=== PATIENT | female | born 2000 | race Caucasian/White ===

== ENCOUNTER 2019-10-26 02:43 | Emergency (ER) | payer OTHER, SELFPAY ==
--- NOTE | ~2019-10-26 | XR_ITS ---
XR abdomen/kub 1V DATE: 10/26/2019 03:17 INDICATION: Constipation TECHNIQUE: AP view COMPARISON: None FINDINGS: No bowel obstruction is evident. There is no unusual amount of fecal material within the co estiven. The psoas shadows are intact. No visceromegaly or significant abnormal calcification is evident. The lung bases appear clear. Included skeletal structures are unremarkable. IMPRESSION: No significant abnormality Reviewed, dictated and finalized at [facility]. Reviewed, dictated and finalized at location A. IMPRESSION: No significant abnormality
[2019-10-26 02:46] VITALS: BP 112/58; PULSE 90; RESP 18; TEMP 36.4; O2SAT 98
--- NOTE | 2019-10-26 02:56 | ED.ABDPAIN ---
HPI - Abdominal Pain General Chief Complaint: Abdominal Pain Stated Complaint: abd pain Time Seen by Provider: 10/26/19 02:55 History of Present Illness HPI narrative: Lower abdominal pain for quite some time. The pain is worse with urination or having a bowel movement. radiates to her back. Recently started on dicyclomine, which has greatly improved the pain. She is concerned that she may be becoming constipated. She is still having regular bowel movements, but she feels like it is harder for her to go. The stool is mushy . She has PCP follow-up for this pain and a well woman exam this morning. Related Data Home Medications Medication Instructions Recorded Confirmed buspirone 5 mg PO BID 10/26/19 dicyclomine 10 mg PO BID 10/26/19 sertraline mg 10/26/19 Allergies Allergy/AdvReac Type Severity Reaction Status Date / Time No Known Allergies Allergy Verified 10/26/19 02:50 Review of Systems Review of Systems: All systems reviewed & are unremarkable except as noted in HPI and below Constitutional: Constitutional: Denies chills, Denies fever(s) and Denies weakness Cardiovascular: Cardiovascular: Denies chest pain Respiratory: Respiratory: Denies dyspnea Gastrointestinal: Gastrointestinal: Reports abdominal pain, Reports constipation, Denies diarrhea, Reports nausea and Denies vomiting Genitourinary: Genitourinary: Denies hematuria and Denies dysuria Musculoskeletal: Musculoskeletal: Reports back pain Psychiatric: Psychiatric: Reports anxiety and Reports depression [facility] Past Medical History Medical History (Updated 10/26/19 @ 04:33 by Phil Mora MD) Anorexia Family History Family History (Updated 09/26/18 @ 08:43 by DOCTOR UNKNOWN) Sibling Family history of malignant neoplasm of cervix Other Diabetes mellitus Family history of arthritis Family history of cardiovascular disease Social History Social History Smoking status: Never smoker Second hand tobacco smoke exposure: No Alcohol intake: never Exam Const: General: healthy appearing, no acute distress and alert Nutritional Appearance: well nourished Orientation/consciousness: patient oriented x3 HENMT: Head: normal to inspection Resp: Effort & Inspection: normal respiratory effort Auscultation: clear to auscultation bilaterally Cardio: Rate: regular rate Rhythm: regular rhythm GI: Inspection: non-distended GI Palp: Yes Soft to palpation, Yes Tenderness to palpation present (GI) (bilateral lower abdomen), No Guarding due to palpation present (GI) and No Rebound tenderness present Auscultation: normal bowel sounds Skin: General skin exam: normal color Neuro: General: patient oriented x3, moves all extremities, no focal motor deficits and CN's II-XI intact bilaterally Speech: normal speech Extrem: General: normal to inspection Psych: Affect: Anxious affect present Course Vital Signs Vital signs: Vital Signs Temperature 36.4 C L 10/26/19 02:46 Pulse Rate 90 10/26/19 02:46 Respiratory Rate 18 10/26/19 02:46 Blood Pressure 112/58 L 10/26/19 02:46 Pulse Oximetry 98 10/26/19 02:46 Temperature 36.4 C L 10/26/19 02:46 Pulse Rate 90 10/26/19 02:46 Respiratory Rate 18 10/26/19 02:46 Blood Pressure 112/58 L 10/26/19 02:46 Pulse Oximetry 98 10/26/19 02:46 MDM - Abdominal Pain MDM Narrative Medical decision making narrative: She has chronic abdominal issues. She believes that she is constipated. She is still having bowel movements and x-ray does not show significant stool. UA is not normal, but looks more contaminated than like a UTI. Exam is benign. I believe that she is safe for discharge to follow-up later today as planned. Medical Records Attestation: I reviewed the patient's medical records. Lab Data Attestation: I reviewed the patient's lab results. Labs: Lab Results 10/26/19 Range/Units 03:19 Urine Color Yellow (Yellow) Urine Appearance Cloudy H
[2019-10-26 03:35] LABS: Add Urine Microscopic? YES; Amorphous Sediment Urine Few; Appearance Urine Cloudy (Clear); Bacteria Urine Trace /hpf; Bilirubin Urine Negative (Negative); Blood Urine Negative (Negative); Color Urine Yellow (Yellow); Glucose Urine UA Negative (Negative); Ketones Urine Negative (Negative); Leukocyte Esterase Ur 2+ LEU/UL (Negative); Mucus Urine Rare /lpf; Nitrate Urine Negative (Negative); Protein Urine Negative (Negative); Specific Grav Ur 1.016 (1.001-1.035); Squamous Epithelial Cell Urine Many /hpf (Few); Urobilinogen Urine Negative mg/dL (<2.0)
== END 2019-10-26 03:54 | disposition home or self-care (01) ==
PROVIDERS: Emergency Provider Emergency Medicine; PCP Nurse Practitioner
DX: R10.30 Lower abdominal pain, unspecified (principal)
CPT/HCPCS: 74018; 81001; 81025; 99283

== ENCOUNTER 2019-10-27 14:18 | Outpatient (CLI) | payer OTHER, SELFPAY ==
--- NOTE | ~2019-10-27 | US_ITS ---
EXAMINATION: US right upper quadrant DATE: 10/27/2019 16:27 INDICATION: Right upper quadrant abdominal pain. TECHNIQUE: Multiple grayscale and Doppler ultrasound images of the abdomen were obtained. COMPARISON: CT abdomen and pelvis 06/22/2015 FINDINGS: The visualized portions of the head, body, and tail of the pancreas are normal. The liver i s normal without focal lesion. There is normal flow in main portal vein. The gallbladder is normal in size and contains sludge. No gallstones or gallbladder wall thickening. There was no sonographic Mur phy sign. The common duct is normal and measures 3 mm. IMPRESSION: 1. Gallbladder sludge. No evidence of acute cholecystitis. Reviewed, dictated and finalized at location A.
== END 2019-10-27 14:19 | disposition home or self-care (01) ==
PROVIDERS: PCP Nurse Practitioner; Visit Provider Nurse Practitioner
DX: R10.11 Right upper quadrant pain (principal); K83.9 Disease of biliary tract, unspecified
CPT/HCPCS: 76705

== ENCOUNTER 2019-10-30 14:03 | Emergency (ER) | payer OTHER, SELFPAY ==
--- NOTE | ~2019-10-30 | CT_ITS ---
EXAMINATION: CT abdomen pelvis w con DATE: 10/30/2019 16:01 INDICATION: Left flank pain. TECHNIQUE: Computed tomography (CT) of the abdomen and pelvis was performed with 100 mL Omnipaque-350 intravenous contrast. Automated exposure control and iterative reconstruction technique were employe d. The dose-length product was 195.01 mGy-cm. COMPARISON: 06/22/2015 FINDINGS: Minimal atelectasis/scarring at the anterior basilar left lower lobe. Heart size is normal. No perica rdial or pleural effusion. Liver, gallbladder, spleen, pancreas, bilateral adrenal glands and kidneys are normal. Normal appendix. No abnormal bowel wall thickening or obstruction. Bladder, anteverted u terus and bilateral adnexa are unremarkable. No free intraperitoneal gas or fluid. No pathologically enlarged abdominal or pelvic lymphadenopathy. Bones are unremarkable. IMPRESSION: 1. No acute intra-abdominal/pelvic process. Reviewed, dictated and finalized at location A.
[2019-10-30 14:07] VITALS: BP 111/67; PULSE 88; RESP 18; TEMP 36.6; O2SAT 99
--- NOTE | 2019-10-30 15:19 | ED.ABDPAIN ---
HPI - Abdominal Pain General Chief Complaint: Abdominal Pain Stated Complaint: abdominal pain Time Seen by Provider: 10/30/19 14:58 Source: patient Mode of arrival: ambulatory Limitations: no limitations History of Present Illness HPI narrative: 19-year-old female History of anorexia Complains of approximately a 3-month history of loose stools, not really diarrhea For the last week she has been having sharp left flank pain No nausea or vomiting, no fever, no dysuria or hematuria Her periods have often been irregular but have been regular lately and her last one was 2 weeks ago She does not have any other gynecologic symptoms She is seeing her PCP, labs were done but she is not yet aware of the results Although she is telling me that most of her symptoms are on the left flank or lower belly she had a right upper quadrant ultrasound done which showed an unremarkable gallbladder Pertinent past history: other (Anorexia) Onset (ago): day(s) Pain Consistency: intermittent Location: LLQ and L flank Severity: moderate Related Data Home Medications Medication Instructions Recorded Confirmed buspirone 5 mg PO BID 10/26/19 dicyclomine 10 mg PO BID 10/26/19 sertraline mg 10/26/19 Allergies Allergy/AdvReac Type Severity Reaction Status Date / Time No Known Allergies Allergy Verified 10/26/19 02:50 PMFSH Past Medical History Medical History (Updated 10/30/19 @ 18:12 by Mason Brice MD) Anorexia Family History Family History (Updated 09/26/18 @ 08:43 by DOCTOR UNKNOWN) Sibling Family history of malignant neoplasm of cervix Other Diabetes mellitus Family history of arthritis Family history of cardiovascular disease Social History Social History Smoking status: Never smoker Second hand tobacco smoke exposure: No Alcohol intake: never Gender identity (if verbalized by the patient): Female Sexual Orientation (if Verbalized by the Patient): Straight or Heterosexual Course Vital Signs Vital signs: Vital Signs Temperature 36.6 C 10/30/19 14:07 Pulse Rate 88 10/30/19 14:07 Respiratory Rate 18 10/30/19 14:07 Blood Pressure 111/67 10/30/19 14:07 Pulse Oximetry 99 10/30/19 14:07 Temperature 36.6 C 10/30/19 14:07 Pulse Rate 75 10/30/19 17:10 Respiratory Rate 18 10/30/19 17:10 Blood Pressure 110/72 10/30/19 17:10 Pulse Oximetry 100 10/30/19 17:10 MDM - Abdominal Pain Lab Data Result diagrams: 10/30/19 15:21 10/30/19 15:22 Labs: Lab Results 10/30/19 10/30/19 10/30/19 Range/Units 15:21 15:21 15:22 WBC 6.1 (4.5-10.0) K/mm3 RBC 4.79 (4.2-5.4) M/mm3 Hgb 14.6 (12.0-15.0) g/dL Hct 44.6 (37.0-47.0) % MCV 93.1 (80-100) fl MCH 30.5 (26-34) pg MCHC 32.7 (32-36) g/dl RDW 13.2 (11.5-14.5) % Plt Count 262 (150-375) k/mm3 MPV 9.6 (7.4-10.4) fl Immature Gran % (Auto) 0.2 (0-0.5) % Neut % (Auto) 68.3 (45.5-73.1) % Lymph % (Auto) 22.1 (18.3-44.2) % [place] % (Auto) 7.0 (2.6-8.5) % Eos % (Auto) 1.6 (0-4.4) % Baso % (Auto) 0.8 (0.2-1.2) % Lymph # (Auto) 1.35 (0.9-3.2) K/mm3 [place] # (Auto) 0.4 (0.1-0.6) K/mm3 Eos # (Auto) 0.1 (0-0.3) K/mm3 Baso # (Auto) 0.1 (0.0-0.1) K/mm3 Abs Immat Gran (auto) 0.01 (0.00-0.031) K/mm3 Absolute Neuts (auto) 4.2 (1.3-6.7) K/mm3 Absolute Nucleated RBC 0.0 (0.0-0.012) K/mm3 Nucleated RBC % 0.0 (0.0-0.2) % Sodium 137 (137-145) mmol/L Potassium 4.1 (3.4-5.0) mmol/L Chloride 100 (98-107) mmol/L Carbon Dioxide 31 H (22-30) mmol/L Anion Gap 6 L (8-16) mmol/L BUN 17 (7-17) mg/dL Creatinine 0.60 L (0.7-1.0) mg/dL Estim Creat Clear Calc 100 ml/min Estimated GFR > 60 (59 - ) Glucose 88 (65-105) mg/dL Calcium 9.5 (8.4-10.2) mg/dL Urine Color Yellow (Yellow) Urine Appearance Cloudy H (Clear) Urine pH 6.0 (5.0-9.0)
[2019-10-30] MEDS: HYOSCYAMINE SULFATE 0.125 MG TABLET SUBLINGUAL (15:25)
[2019-10-30 15:31] LABS: Basophils Absolute Auto 0.1 K/mm3 (0.0-0.1); Basophils Percent Auto 0.8 % (0.2-1.2); Eosinophils Absolute Auto 0.1 K/mm3 (0-0.3); Eosinophils Percent Auto 1.6 % (0-4.4); Hematocrit 44.6 % (37.0-47.0); Hemoglobin 14.6 g/dL (12.0-15.0); Immature Granulocyte Absolute 0.01 K/mm3 (0.00-0.031); Immature Granulocyte Percent A 0.2 % (0-0.5); Lymphocytes Absolute Auto 1.35 K/mm3 (0.9-3.2); Lymphocytes Percent Auto 22.1 % (18.3-44.2); Mean Corpuscular HGB Conc 32.7 g/dl (32-36); Mean Corpuscular Hemoglobin 30.5 pg (26-34); Mean Corpuscular Volume 93.1 fl (80-100); Mean Platelet Volume 9.6 fl (7.4-10.4); Monocytes Absolute Auto 0.4 K/mm3 (0.1-0.6); Neutrophils Absolute Auto 4.2 K/mm3 (1.3-6.7); Neutrophils Percent Auto 68.3 % (45.5-73.1); Platelet Count Result 262 k/mm3 (150-375); Red Blood Count 4.79 M/mm3 (4.2-5.4); Red Cell Distribution Width 13.2 % (11.5-14.5); White Blood Count 6.1 K/mm3 (4.5-10.0)
[2019-10-30 15:41] LABS: Add Urine Microscopic? YES; Appearance Urine Cloudy (Clear); Bacteria Urine Trace /hpf; Bilirubin Urine Negative (Negative); Blood Urine Negative (Negative); Color Urine Yellow (Yellow); Glucose Urine UA Negative (Negative); Ketones Urine Negative (Negative); Leukocyte Esterase Ur 2+ LEU/UL (Negative); Mucus Urine Heavy /lpf; Nitrate Urine Negative (Negative); Protein Urine 1+ mg/dL (Negative); Specific Grav Ur 1.024 (1.001-1.035); Squamous Epithelial Cell Urine Many /hpf (Few); Urobilinogen Urine Negative mg/dL (<2.0)
[2019-10-30 15:42] LABS: Anion Gap 6 mmol/L (8-16); Blood Urea Nitrogen 17 mg/dL (7-17); Calcium 9.5 mg/dL (8.4-10.2); Carbon Dioxide 31 mmol/L (22-30); Chloride 100 mmol/L (98-107); Estimated CRCL calculation 100 ml/min; Estimated Glomerular Filt Rate > 60; Glucose 88 mg/dL (65-105); Potassium 4.1 mmol/L (3.4-5.0); Sodium 137 mmol/L (137-145)
[2019-10-30 17:10] VITALS: BP 110/72; PULSE 75; RESP 18; O2SAT 100
== END 2019-10-30 18:28 | disposition home or self-care (01) ==
PROVIDERS: Emergency Provider Emergency Medicine; PCP Nurse Practitioner
DX: K58.9 Irritable bowel syndrome, unspecified (principal)
CPT/HCPCS: 36415; 74177; 80048; 81001; 81025; 85025; 87086; 87088; 99284; A9270; Q9967

== ENCOUNTER 2020-01-22 04:15 | Emergency (ER) | payer OTHER, SELFPAY ==
--- NOTE | ~2020-01-22 | XR_ITS ---
EXAMINATION: XR chest 1V portable DATE: 01/22/2020 05:12 INDICATION: Cough TECHNIQUE: frontal view of the chest was obtained. COMPARISON: Chest radiograph dated 09/28/2018 FINDINGS: The lungs remain clear with no focal airspace opacities, pulmonary edema, pleural effusion or pneumot horax. The cardiomediastinal silhouette is normal. Visualized bones and soft tissues are unremarkable . IMPRESSION: 1. Normal chest radiograph. Reviewed, dictated and finalized at location A. ER MAID IMPRESSION: 1. Normal chest radiograph.
[2020-01-22 04:22] VITALS: BP 113/66; PULSE 94; RESP 16; TEMP 35.9; O2SAT 98
--- NOTE | 2020-01-22 04:55 | ED.URI ---
HPI - URI/Sore Throat General Chief Complaint: Upper Respiratory Infection Stated Complaint: coughing, sore throat Time Seen by Provider: 01/22/20 04:42 History of Present Illness HPI Narrative: Cough and chest congestion for the past week. Associated with a scratchy throat. No fever, chills, SOB. She is tested for COVID-19 twice weekly at work and all tests have been negative. Robitussin has not relieved her cough. Related Data Home Medications Medication Instructions Recorded Confirmed buspirone 5 mg PO BID 10/26/19 dicyclomine 10 mg PO BID 10/26/19 sertraline mg 10/26/19 Allergies Allergy/AdvReac Type Severity Reaction Status Date / Time No Known Allergies Allergy Verified 10/26/19 02:50 Review of Systems Review of Systems: All systems reviewed & are unremarkable except as noted in HPI and below Constitutional: Constitutional: Denies chills and Denies fever(s) ENT: Reports sore throat Cardiovascular: Cardiovascular: Denies chest pain Respiratory: Respiratory: Reports chest congestion, Reports cough, Denies dyspnea and Denies wheezing Gastrointestinal: Gastrointestinal: Denies abdominal pain and Denies nausea Genitourinary: Genitourinary: Denies dysuria Musculoskeletal: Musculoskeletal: Denies back pain Neurologic: Denies numbness and Denies weakness [facility] Past Medical History Medical History Anorexia Family History Family History Sibling Family history of malignant neoplasm of cervix Other Diabetes mellitus Family history of arthritis Family history of cardiovascular disease Social History Social History Smoking status: Never smoker Second hand tobacco smoke exposure: No Alcohol intake: never Gender identity (if verbalized by the patient): Female Exam Const: General: healthy appearing, no acute distress and alert Orientation/consciousness: patient oriented x3 HENMT: Head: normal to inspection Neck: Neck: normal visual inspection and no lymphadenopathy Chest: Chest palpation & inspection: no tenderness Resp: Effort & Inspection: normal respiratory effort Auscultation: clear to auscultation bilaterally, no rales, no rhonchi and no wheezes Cardio: Jugular venous distension: no JVD Rate: regular rate Rhythm: regular rhythm Heart sounds: no murmurs GI: Inspection: non-distended GI Palp: Yes Soft to palpation and No Tenderness to palpation present (GI) Skin: General skin exam: normal color Neuro: General: patient oriented x3 and moves all extremities Speech: normal speech Extrem: General: no edema Psych: Appearance: well kempt Affect: normal affect Course Vital Signs Vital signs: Vital Signs Temperature 35.9 C L 01/22/20 04:22 Pulse Rate 94 01/22/20 04:22 Respiratory Rate 16 01/22/20 04:22 Blood Pressure 113/66 01/22/20 04:22 Pulse Oximetry 98 01/22/20 04:22 Temperature 35.9 C L 01/22/20 04:22 Pulse Rate 94 01/22/20 04:22 Respiratory Rate 16 01/22/20 04:22 Blood Pressure 113/66 01/22/20 04:22 Pulse Oximetry 98 01/22/20 04:22 MDM - URI/Sore Throat MDM Narrative Medical decision making narrative: Chest x-ray negative. Vitals normal. Imaging Data Attestation: I personally reviewed and interpreted this imaging study as follows: My impression: Negative chest x-ray Discharge Plan Discharge Clinical Impression: Upper respiratory infection Patient Disposition: Home, Self-Care Condition: Stable Instructions: Upper Respiratory Infection (ED) Prescriptions: New benzonatate [Tessalon Perles] 100 mg capsule 100 mg PO TID PRN (Reason: cough) Qty: 20 RF: 0 No Action buspirone 5 mg Tablet 5 mg PO BID RF: 0 sertraline 100 mg tablet RF: 0 dicyclomine 10 mg Capsule 10 mg PO BID RF: 0 hyoscyamine sulfate [
--- NOTE | 2020-01-22 05:03 | PC.NURSE ---
Radiology at bedside
[2020-01-22] MEDS: BENZONATATE 100 MG CAPSULE 200 MG PO (05:12)
[2020-01-22 05:59] VITALS: BP 102/73; PULSE 60; RESP 18; O2SAT 99
== END 2020-01-22 06:06 | disposition home or self-care (01) ==
PROVIDERS: Emergency Provider Emergency Medicine; PCP Nurse Practitioner
DX: J06.9 Acute upper respiratory infection, unspecified (principal)
CPT/HCPCS: 71045; 99283; A9270

== ENCOUNTER 2020-03-02 06:17 | Emergency (ER) | payer OTHER, SELFPAY ==
--- NOTE | ~2020-03-02 | XR_ITS ---
EXAMINATION: XR chest 2V EXAM DATE: 03/02/2020 06:55 INDICATION: Left-sided chest pressure. TECHNIQUE: Frontal and lateral projections of the chest obtained and reviewed. Comparison is made to prior examination from 01/22/2020. FINDINGS: The lungs are clear. There are no pleural effusions. The cardiomediastinal silhouette is within normal limits. There is no pneumothorax suspected. The bones and soft tissues are unremarkab le. IMPRESSION: Normal chest x-ray exam. Reviewed, dictated and finalized at location A. R ACCOMPANIST IMPRESSION: Normal chest x-ray exam.
[2020-03-02 06:22] VITALS: BP 127/69; PULSE 50; RESP 16; TEMP 36.7; O2SAT 100
--- NOTE | 2020-03-02 06:28 | PC.NURSE ---
Pt moderate risk for treatment for SI in 2019. Denies SI at this time.
--- NOTE | 2020-03-02 06:29 | ECG_ITS ---
Measurements Intervals [place] Rate: 50 P: 80 MS: 229 QRS: 78 QRSD: 101 T: 52 QT: 407 QTc: 373 Interpretive Statements SINUS BRADYCARDIA WITH MARKED SINUS ARRHYTHMIA WITH FIRST DEGREE AV BLOCK POSSIBLE LEFT ATRIAL ENLARGEMENT INCOMPLETE RIGHT BUNDLE BRANCH BLOCK ABNORMAL ECG Electronically Signed On 03-02-2020 7:18:09 MATHEMATICIAN RESEARCH by Addy Shetty D.O.
--- NOTE | 2020-03-02 06:42 | PC.NURSE ---
Patient refusing IV access stating, if you guys leave this IV in my arm it will trigger my anxiety and I will have panic attack.
[2020-03-02 06:44] VITALS: PULSE 64
[2020-03-02 06:45] LABS: Basophils Absolute Auto 0.1 K/mm3 (0.0-0.1); Eosinophils Absolute Auto 0.2 K/mm3 (0-0.3); Eosinophils Percent Auto 2.9 % (0-4.4); Hematocrit 44.8 % (37.0-47.0); Hemoglobin 14.6 g/dL (12.0-15.0); Immature Granulocyte Absolute 0.03 K/mm3 (0.00-0.031); Immature Granulocyte Percent A 0.4 % (0-0.5); Lymphocytes Absolute Auto 2.43 K/mm3 (0.9-3.2); Lymphocytes Percent Auto 35.7 % (18.3-44.2); Mean Corpuscular HGB Conc 32.6 g/dl (32-36); Mean Corpuscular Volume 95.1 fl (80-100); Mean Platelet Volume 8.9 fl (7.4-10.4); Monocytes Absolute Auto 0.5 K/mm3 (0.1-0.6); Monocytes Percent Auto 7.5 % (2.6-8.5); Neutrophils Absolute Auto 3.6 K/mm3 (1.3-6.7); Neutrophils Percent Auto 52.5 % (45.5-73.1); Platelet Count Result 276 k/mm3 (150-375); Red Blood Count 4.71 M/mm3 (4.2-5.4); Red Cell Distribution Width 13.9 % (11.5-14.5); White Blood Count 6.8 K/mm3 (4.5-10.0)
[2020-03-02 06:53] LABS: Partial Thromboplastin Time 28.9 SECONDS (22.3-36.8); Prothrombin Time 13.5 Seconds (11.1-14.7)
[2020-03-02 06:56] LABS: Anion Gap 6 mmol/L (8-16); Blood Urea Nitrogen 15 mg/dL (7-17); Calcium 9.4 mg/dL (8.4-10.2); Carbon Dioxide 30 mmol/L (22-30); Chloride 102 mmol/L (98-107); Estimated CRCL calculation 105 ml/min; Estimated Glomerular Filt Rate > 60; Glucose 90 mg/dL (65-105); Potassium 3.8 mmol/L (3.4-5.0); Sodium 138 mmol/L (137-145)
[2020-03-02 07:09] LABS: Troponin I < 0.012 ng/mL (0.000-0.034)
[2020-03-02 07:30] VITALS: BP 109/75; PULSE 69; RESP 18; O2SAT 100
--- NOTE | 2020-03-02 07:36 | ED.CHESTPAIN ---
HPI - Chest Pain General Chief Complaint: Chest Pain Stated Complaint: cp/sob Time Seen by Provider: 03/02/20 07:04 History of Present Illness HPI narrative: Patient is a 19-year-old female who presents ER with left-sided chest pain. Began a couple hours prior to arrival. Association with discomfort in the left shoulder and arm. It is aching in nature. She tried to wait it out to see if it would go away but it persisted. Prior to arrival she did developed an anxiety attack. Now that she is here she only has a small amount of discomfort in her left upper chest near the axilla and in her left shoulder. Is reproducible with movement or pressure. She is tried no pain medications. She has no runny nose/sore throat/productive cough. No history of cardiac disease. No additional infectious symptoms. No lower extremity swelling. Related Data Home Medications Medication Instructions Recorded Confirmed buspirone 5 mg PO BID 10/26/19 sertraline 50 mg PO DAILY 10/26/19 oxcarbazepine 300 mg PO BID 03/02/20 03/02/20 Allergies Allergy/AdvReac Type Severity Reaction Status Date / Time No Known Allergies Allergy Verified 03/02/20 07:51 Review of Systems Review of Systems: All systems reviewed & are unremarkable except as noted in HPI and below Constitutional: Constitutional: Denies chills, Denies fever(s) and Denies weakness ENT: Denies nasal congestion and Denies sore throat Cardiovascular: Cardiovascular: Reports chest pain, Denies rapid heart rate and Reports radiating jaw, neck or arm pain Respiratory: Respiratory: Denies cough, Denies dyspnea and Denies wheezing Gastrointestinal: Gastrointestinal: Denies abdominal pain, Denies diarrhea, Denies nausea and Denies vomiting Neurologic: Denies focal weakness and Denies numbness Psychiatric: Psychiatric: Reports anxiety and Denies depression [facility] Past Medical History Medical History (Updated 03/02/20 @ 08:42 by John Garcia MD) Anorexia Surgical History Surgical History (Updated 03/02/20 @ 07:39 by John Garcia MD) No history of previous surgery Family History Family History Sibling Family history of malignant neoplasm of cervix Other Diabetes mellitus Family history of arthritis Family history of cardiovascular disease Social History Social History Smoking status: Never smoker Second hand tobacco smoke exposure: No Alcohol intake: never Gender identity (if verbalized by the patient): Female Exam Narrative: Exam Narrative: GENERAL: Well-appearing, well-nourished, and in no acute distress. HEAD: Normocephalic, atraumatic. EYES: PERRL and EOMI. CHEST: Clear to auscultation. No respiratory distress. Reproducible tenderness to the left upper chest near the axilla with light palpation. HEART: Regular rate and rhythm. Normal peripheral pulses. ABDOMEN: Soft, nontender, nondistended. EXTREMITIES: Normal range of motion. No edema. NEURO: Alert and oriented x3. PSYCH: Normal mood and affect. Course Course Emergency Course: Aspirin is taken by patient's discomfort. Unremarkable work-up. Discharge home. Vital Signs Vital signs: Vital Signs Temperature 98.1 F 03/02/20 06:22 Pulse Rate 50 L 03/02/20 06:22 Respiratory Rate 16 03/02/20 06:22 Blood Pressure 127/69 03/02/20 06:22 Pulse Oximetry 100 03/02/20 06:22 Temperature 98.1 F 03/02/20 06:22 Pulse Rate 69 03/02/20 07:30 Respiratory Rate 18 03/02/20 07:30 Blood Pressure 109/75 03/02/20 07:30 Pulse Oximetry 100 03/02/20 07:30 MDM - Chest Pain Lab Data Result diagrams: 03/02/20 06:37 03/02/20 06:37 Labs: Lab Results 03/02/20 03/02/20 03/02/20 Range/Units 06:37 06:37 06:37 WBC 6.8 (4.5-10.0) K/mm3 RBC 4.71 (4.2-5.4) M/mm3 Hgb 14.6 (12.0-15.0) g/dL Hct 44.8 (37.0-
[2020-03-02] MEDS: ASPIRIN 81 MG CHEWABLE TABLET 324 MG PO (07:50)
== END 2020-03-02 08:54 | disposition home or self-care (01) ==
PROVIDERS: Emergency Medicine; Emergency Provider Emergency Medicine; Family Provider Pediatrics; PCP Nurse Practitioner
DX: R07.9 Chest pain, unspecified (principal); R00.1 Bradycardia, unspecified
CPT/HCPCS: 36415; 71046; 80048; 84484; 85025; 85610; 85730; 93005; 99284; A9270

== ENCOUNTER 2020-05-26 10:20 | Emergency (ER) | payer OTHER, SELFPAY ==
[2020-05-26] VITALS (10 sets, daily range): BP systolic 106–129; BP diastolic 72–87; PULSE 58–88; RESP 11–22; TEMP 37.1; O2SAT 98–100
--- NOTE | ~2020-05-26 | XR_ITS ---
EXAMINATION: XR chest 2V DATE: 05/26/2020 10:59 INDICATION: Chest pain. TECHNIQUE: Frontal and lateral views of the chest were obtained. COMPARISON: Chest 2 views 03/02/2020, CT abdomen and pelvis 10/30/2019 FINDINGS: The chest demonstrates clear lungs without pneumonia, pleural effusion, or pneumothorax. Th e heart size is normal. IMPRESSION: 1. No acute cardiopulmonary disease. Reviewed, dictated and finalized at location A.
--- NOTE | 2020-05-26 10:25 | ED.CHESTPAIN ---
HPI - Chest Pain General Chief Complaint: Chest Pain <Belkys Segundo PA-C - Last Filed: 05/26/20 14:08> Stated Complaint: CP URI symptoms <ALYSSA Freed Last Filed: 05/26/20 14:08> Time Seen by Provider: 05/26/20 10:22 <ALYSSA Freed Last Filed: 05/26/20 14:08> Source: patient <ALYSSA Freed Last Filed: 05/26/20 14:08> Mode of arrival: EMS <ALYSSA Freed Last Filed: 05/26/20 14:08> Limitations: no limitations <ALYSSA Freed Last Filed: 05/26/20 14:08> History of Present Illness HPI narrative: This is a 19 year old female that presents to the ER for chest pain intermittent over the last 4 months. Reports the pain is a pressure in nature. No known alleviating or exacerbating factors. It is on the left side of her chest. Lasts a few minutes to even all day at times. Today it started when she woke up. She has also had some congestion the last week. Has had sinus issues for years. Reports she is a little short of breath. Denies fever, sore throat, cough, or lower extremity edema. <ALYSSA Freed Last Filed: 05/26/20 14:08> Related Data Home Medications: Home Medications Medication Instructions Recorded Confirmed buspirone 5 mg PO BID 10/26/19 sertraline 50 mg PO DAILY 10/26/19 oxcarbazepine 300 mg PO BID 03/02/20 03/02/20 <ALYSSA Freed Last Filed: 05/26/20 14:08> Allergies/Adverse Reactions: Allergies Allergy/AdvReac Type Severity Reaction Status Date / Time No Known Allergies Allergy Verified 05/26/20 10:46 <ALYSSA Freed Last Filed: 05/26/20 14:08> Review of Systems Review of Systems: Narrative: CONSTITUTIONAL: Denies fever ENT: Reports congestion. Denies sore throat, or otalgia. CARDIOVASCULAR: Reports chest pain. Denies edema. RESPIRATORY: Reports dyspnea. Denies cough <Belkys Segundo PA-C - Last Filed: 05/26/20 14:08> All systems reviewed & are unremarkable except as noted in HPI and below <Belkys Segundo PA-C - Last Filed: 05/26/20 14:08> PMFSH Past Medical History Medical History: Medical History (Updated 05/26/20 @ 13:27 by Belkys Segundo PA-C) Anorexia History of anxiety <Belkys Segundo PA-C - Last Filed: 05/26/20 14:08> Surgical History Surgical History: Surgical History (Updated 03/02/20 @ 07:39 by John Garcia MD) No history of previous surgery <Belkys Segundo PA-C - Last Filed: 05/26/20 14:08> Family History Family History: Family History Sibling Family history of malignant neoplasm of cervix Other Diabetes mellitus Family history of arthritis Family history of cardiovascular disease <Belkys Segundo PA-C - Last Filed: 05/26/20 14:08> Social History Social History: Social History Smoking status: Never smoker Second hand tobacco smoke exposure: No Alcohol intake: never Gender identity (if verbalized by the patient): Female <Belkys Segundo PA-C - Last Filed: 05/26/20 14:08> Exam Narrative: Exam Narrative: GENERAL: Well-appearing, well-nourished, and in no acute distress. HEAD: Normocephalic, atraumatic. EYES: EOMI. ENT: Nares clear, no rhinorrhea or epistaxis. Mucous membranes moist. Oropharynx without tonsillar hypertrophy exudate or other lesions. Bilateral TMs pearly abad non-bulging NECK: Supple. No adenopathy or masses. CHEST: Clear to auscultation. No respiratory distress. No wheezes rales or rhonchi. Tender to palpation of the left anterior chest HEART: Regular rate and rhythm. No murmur heard. Normal peripheral pulses. EXTREMITIES: Normal range of motion. No edema. SKIN: Warm, dry, no rash. NEURO: No focal deficits. Alert and oriented x3. PSYCH: Normal mood and affect <Belkys Segundo PA-C - Last Filed: 05/26/20 14:08> Course Vital Signs Vital signs: Vit
--- NOTE | 2020-05-26 10:39 | ECG_ITS ---
Measurements Intervals [place] Rate: 74 P: 63 SD: 224 QRS: 62 QRSD: 87 T: 49 QT: 383 QTc: 426 Interpretive Statements SINUS RHYTHM WITH FIRST DEGREE AV BLOCK INCOMPLETE RIGHT BUNDLE BRANCH BLOCK ABNORMAL ECG Electronically Signed On 05-26-2020 10:41:23 CDT by Addy Shetty D.O.
[2020-05-26 11:17] LABS: Basophils Absolute Auto 0.1 K/mm3 (0.0-0.1); Basophils Percent Auto 0.8 % (0.2-1.2); Eosinophils Absolute Auto 0.1 K/mm3 (0-0.3); Eosinophils Percent Auto 0.9 % (0-4.4); Hematocrit 44.1 % (37.0-47.0); Hemoglobin 14.8 g/dL (12.0-15.0); Immature Granulocyte Absolute 0.02 K/mm3 (0.00-0.031); Immature Granulocyte Percent A 0.3 % (0-0.5); Lymphocytes Absolute Auto 1.26 K/mm3 (0.9-3.2); Lymphocytes Percent Auto 19.4 % (18.3-44.2); Mean Corpuscular HGB Conc 33.6 g/dl (32-36); Mean Corpuscular Volume 92.5 fl (80-100); Mean Platelet Volume 9.2 fl (7.4-10.4); Monocytes Absolute Auto 0.7 K/mm3 (0.1-0.6); Monocytes Percent Auto 10.8 % (2.6-8.5); Neutrophils Absolute Auto 4.4 K/mm3 (1.3-6.7); Neutrophils Percent Auto 67.8 % (45.5-73.1); Platelet Count Result 243 k/mm3 (150-375); Red Blood Count 4.77 M/mm3 (4.2-5.4); Red Cell Distribution Width 12.8 % (11.5-14.5); White Blood Count 6.5 K/mm3 (4.5-10.0)
[2020-05-26 11:26] LABS: Prothrombin Time 13.6 Seconds (11.1-14.7)
[2020-05-26 11:27] LABS: Partial Thromboplastin Time 27.2 SECONDS (22.3-36.8)
[2020-05-26 11:28] LABS: Anion Gap 9 mmol/L (8-16); Blood Urea Nitrogen 8 mg/dL (7-17); Calcium 9.1 mg/dL (8.4-10.2); Carbon Dioxide 28 mmol/L (22-30); Chloride 100 mmol/L (98-107); Estimated CRCL calculation 103 ml/min; Estimated Glomerular Filt Rate > 60; Glucose 85 mg/dL (65-105); Potassium 3.7 mmol/L (3.4-5.0); Sodium 137 mmol/L (137-145)
[2020-05-26 11:34] LABS: D Dimer 0.24 ug/mL (<0.48)
[2020-05-26 11:40] LABS: Troponin I < 0.012 ng/mL (0.000-0.034)
[2020-05-26] MEDS: ACETAMINOPHEN 500 MG TABLET 1000 MG PO (12:35)
--- NOTE | 2020-05-26 12:45 | PC.NURSE ---
Pt given tylenol po for headache. Pt also given lunch tray.
[2020-05-26 14:07] LABS: Troponin I < 0.012 ng/mL (0.000-0.034)
== END 2020-05-26 14:20 | disposition home or self-care (01) ==
PROVIDERS: Physician Assistant; Emergency Provider General Practice; PCP Internal Medicine
DX: R07.89 Other chest pain (principal); F41.9 Anxiety disorder, unspecified; I44.0 Atrioventricular block, first degree; I45.10 Unspecified right bundle-branch block
CPT/HCPCS: 36415; 71046; 80048; 84484; 85025; 85380; 85610; 85730; 93005; 99284; A9270

== ENCOUNTER 2020-08-05 12:31 | Outpatient (CLI) | payer OTHER, SELFPAY ==
--- NOTE | 2020-08-05 | ECHO_ITS ---
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 Summary 1. Complete two-dimensional, color flow and Doppler transthoracic echocardiogram is performed. 2. Left ventricular chamber dimension is normal. 3. Left ventricular systolic function is normal, estimated at 55-60%. 4. The left ventricular diastolic function is normal. 5. E/e' 6 is not elevated. 6. Global longitudinal strain is abnormal at -12.8%. 7. No pulmonary hypertension, estimated pulmonary arterial systolic pressure is 20 mmHg. Left Ventricle E/e' 6 is not elevated. Global longitudinal strain is abnormal at -12.8%. Left ventricular chamber dimension is normal. Left ventricular systolic function is normal, estimated at 55-60%. The left ventricular diastolic function is normal. Right Ventricle Right ventricular chamber dimension is normal. Right ventricular systolic function is normal. Left Atria Left atrial chamber dimension is normal. Right Atria Right atrial chamber dimension is normal. Aortic Valve The aortic valve is trileaflet. There is no aortic valve stenosis. There is no aortic valve regurgitation. Pulmonic Valve There is no pulmonic regurgitation. Mitral Valve There is no mitral valve stenosis. There is no mitral valve regurgitation. Tricuspid Valve There is no tricuspid valve regurgitation. No pulmonary hypertension, estimated pulmonary arterial systolic pressure is 20 mmHg. Pericardium/Pleural There is no pericardial effusion. Inferior Vena Cava Normal inferior vena cava with >50% collapse upon inspiration consistent with normal right atrial pressure, 5 mmHg. Aorta The aortic root size at the sinus of Valsalva is normal. Left Ventricular Outflow Tract Name Value Normal LVOT 2D LVOT Diameter 2.0 cm LVOT Doppler LVOT Peak Gradient 3 mmHg LVOT Mean Gradient 2 mmHg LVOT VTI 17 cm LVOT VTI/AV VTI Ratio 1.0 LVOT Stroke Volume 52 ml LVOT CO 3.4 l/min LVOT CI 2.3 l/min/m2 Pulmonic Valve Name Value Normal RVOT Doppler RVOT Peak Gradient 2 mmHg
== END 2020-08-05 12:32 | disposition home or self-care (01) ==
PROVIDERS: PCP Internal Medicine; Visit Provider Internal Medicine
DX: I45.9 Conduction disorder, unspecified (principal)
CPT/HCPCS: 93306

== ENCOUNTER 2020-08-23 17:12 | Outpatient (CLI) | payer OTHER, SELFPAY ==
[2020-08-23 18:02] LABS: Prothrombin Time 12.7 Seconds (11.1-14.7)
[2020-08-23 18:05] LABS: Partial Thromboplastin Time 28.6 SECONDS (22.3-36.8)
== END 2020-08-23 17:13 | disposition home or self-care (01) ==
LOC: ANHLAB 17:13
PROVIDERS: PCP Internal Medicine; Visit Provider Internal Medicine
DX: R23.8 Other skin changes (principal)
CPT/HCPCS: 36415; 85610; 85730

== ENCOUNTER 2020-09-14 06:37 | Emergency (ER) | payer OTHER, SELFPAY ==
[2020-09-14] VITALS (8 sets, daily range): BP systolic 107–128; BP diastolic 64–88; PULSE 53–89; RESP 12–16; TEMP 36.6; O2SAT 96–100
--- NOTE | ~2020-09-14 | US_ITS ---
EXAMINATION: US pelvic complete w TV DATE: 09/14/2020 09:30 INDICATION: Left back and abdominal pain. TECHNIQUE: Multiple transabdominal and endovaginal sonographic images of the pelvis were obtained. COMPARISON: None. FINDINGS: The anteverted uterus measures 6.3 x 3.2 x 3.7 cm. The endometrial complex measures 8 mm in thicknes s. The right ovary is not visualized The left ovary measures 3.8 x 3.8 x 3.8 cm. 2.3 cm complex likel y hemorrhagic cyst in the left ovary with typical appearance including a lacelike pattern of thin int ernal septations and small crescentic peripheral hypoechoic region without vascular flow on color Dop pler. There is normal vascular flow in the left ovary. There is no free fluid in the pelvis. IMPRESSION: 1. 2.3 cm complex likely hemorrhagic cyst in the left ovary. Consider 6-12 week follow-up pelvic ultr asound. Reviewed, dictated and finalized at location A. IMPRESSION: 1. 2.3 cm complex likely hemorrhagic cyst in the left ovary. Consider 6-12 week follow-up pelvic ultrasound.
--- NOTE | ~2020-09-14 | XR_ITS ---
EXAMINATION: XR abdomen/kub 1V DATE: 09/14/2020 08:18 INDICATION: Left flank pain TECHNIQUE: A supine view of the abdomen on 2 radiographs was obtained. COMPARISON: CT dated 09/14/2020 and KUB dated 10/26/2019 FINDINGS: Normal bowel gas pattern. A couple unchanged phleboliths in the left hemipelvis. No other calcificati ons to suggest urolithiasis. Visualized mid to lower lungs are clear. Heart size is normal. IMPRESSION: 1. Normal bowel gas pattern with no evident urolithiasis. Reviewed, dictated and finalized at location A.
--- NOTE | ~2020-09-14 | CT_ITS ---
EXAMINATION: CT abdomen pelvis wo con DATE: 09/14/2020 08:13 INDICATION: Left flank pain TECHNIQUE: Computed tomography (CT) of the abdomen and pelvis was performed without intravenous contr ast. Automated exposure control and iterative reconstruction technique were employed. The dose-length product was 172.99 mGy-cm. COMPARISON: 10/30/2019 FINDINGS: Unchanged minimal left basilar atelectasis/scarring. Visualized inferior heart is normal. No pericard ial or pleural effusion. Liver, gallbladder, spleen, pancreas and bilateral adrenal glands are normal . Kidneys and ureters are normal with no urolithiasis, hydroureteronephrosis or perinephric/ureteral stranding. Bladder is normal. A couple unchanged phleboliths in the deep pelvis. The left ovary is in unchanged position from the prior study but appears mildly enlarged measuring 4.1 x 3.2 cm and with asymmetric decreased attenuation likely related to ovarian cysts/follicles. Anteverted uterus and rig ht adnexa are unremarkable. No free intraperitoneal gas or fluid. No pathologically enlarged abdomina l or pelvic lymphadenopathy. Bones are unremarkable. IMPRESSION: 1. No urolithiasis or hydronephrosis. 2. Mildly enlarged left ovary measuring 4.1 x 3.2 cm with decreased attenuation likely related to ova estella cysts/follicles. No change in position since the prior study to suggest torsion however if there is clinical concern would consider pelvic ultrasound for further evaluation. Reviewed, dictated and finalized at location A. IMPRESSION: 1. No urolithiasis or hydronephrosis. 2. Mildly enlarged left ovary measuring 4.1 x 3.2 cm with decreased attenuation likely related to ovarian cysts/follicles. No change in position since the tamara or study to suggest torsion however if there is clinical concern would consider pelvic ultrasound for further evaluation.
[2020-09-14 07:28] LABS: Add Urine Microscopic? YES; Appearance Urine Clear (Clear); Bilirubin Urine Negative (Negative); Blood Urine Negative (Negative); Calcium Oxalate Crystals Urine Present /hpf; Color Urine Amber (Yellow); Glucose Urine UA Negative (Negative); Ketones Urine Negative (Negative); Leukocyte Esterase Ur Trace LEU/UL (Negative); Mucus Urine Heavy /lpf; Nitrate Urine Negative (Negative); Protein Urine Negative (Negative); Specific Grav Ur 1.024 (1.001-1.035); Squamous Epithelial Cell Urine Many /hpf (Few)
[2020-09-14 07:36] LABS: Basophils Percent Auto 0.7 % (0.2-1.2); Eosinophils Absolute Auto 0.1 K/mm3 (0-0.3); Hematocrit 46.5 % (37.0-47.0); Hemoglobin 14.8 g/dL (12.0-15.0); Immature Granulocyte Absolute 0.03 K/mm3 (0.00-0.031); Immature Granulocyte Percent A 0.5 % (0-0.5); Lymphocytes Absolute Auto 1.28 K/mm3 (0.9-3.2); Lymphocytes Percent Auto 22.9 % (18.3-44.2); Mean Corpuscular HGB Conc 31.8 g/dl (32-36); Mean Corpuscular Hemoglobin 30.5 pg (26-34); Mean Corpuscular Volume 95.7 fl (80-100); Mean Platelet Volume 8.2 fl (7.4-10.4); Monocytes Absolute Auto 0.4 K/mm3 (0.1-0.6); Monocytes Percent Auto 7.3 % (2.6-8.5); Neutrophils Absolute Auto 3.7 K/mm3 (1.3-6.7); Neutrophils Percent Auto 66.6 % (45.5-73.1); Platelet Count Result 268 k/mm3 (150-375); Red Blood Count 4.86 M/mm3 (4.2-5.4); Red Cell Distribution Width 12.8 % (11.5-14.5); White Blood Count 5.6 K/mm3 (4.5-10.0)
[2020-09-14 07:49] LABS: Alanine Aminotransferase 12 U/L (4-35); Albumin Level 4.3 g/dL (3.5-5.1); Alkaline Phosphatase 69 U/L (38-126); Anion Gap 8 mmol/L (8-16); Aspartate Amino Transferase 23 U/L (14-36); Bilirubin,Total 0.5 mg/dL (0.2-1.3); Blood Urea Nitrogen 11 mg/dL (7-17); Calcium 9.5 mg/dL (8.4-10.2); Carbon Dioxide 29 mmol/L (22-30); Chloride 101 mmol/L (98-107); Estimated Glomerular Filt Rate > 60; Glucose 73 mg/dL (65-110); Lipase 132 U/L (23-300); Potassium 4.1 mmol/L (3.4-5.0); Sodium 138 mmol/L (137-145)
--- NOTE | 2020-09-14 07:52 | PC.NURSE ---
Assumed care of pt at this time, pt is alert and upright on stretcher. VSS. EDP at bedside discussing POC. Pt declines IV at this time.
--- NOTE | 2020-09-14 07:59 | ED.ABDPAIN ---
HPI - Abdominal Pain General Chief Complaint: Abdominal Pain Stated Complaint: abd pain, back pain Time Seen by Provider: 09/14/20 07:08 Source: patient and RN notes reviewed Mode of arrival: ambulatory Limitations: no limitations History of Present Illness HPI narrative: This is a 19 year old female who presents for evaluation of left flank pain. She states she developed left lower abdominal pain that radiates to her left lower back on Saturday. She reports constant pain. She was evaluated at an urgent care on Saturday, and she was diagnosed with a UTI. She continues to have pain so she wanted a second opinion. She describes her pain as warm feeling . She has increased urinary urgency but she denies dysuria, hematuria or abnormal vaginal discharge. She also denies fever or chills. She reports nausea and vomiting. Related Data Home Medications Medication Instructions Recorded Confirmed buspirone 5 mg PO BID 10/26/19 sertraline 50 mg PO DAILY 10/26/19 oxcarbazepine 300 mg PO BID 03/02/20 03/02/20 Allergies Allergy/AdvReac Type Severity Reaction Status Date / Time No Known Allergies Allergy Verified 09/14/20 08:19 Review of Systems Review of Systems: All systems reviewed & are unremarkable except as noted in HPI and below PMFSH Past Medical History Medical History (Updated 09/14/20 @ 10:38 by Brooke Teresa MD) Anorexia History of anxiety Surgical History Surgical History (Updated 03/02/20 @ 07:39 by John Garcia MD) No history of previous surgery Family History Family History Sibling Family history of malignant neoplasm of cervix Other Diabetes mellitus Family history of arthritis Family history of cardiovascular disease Social History Social History Smoking status: Never smoker Second hand tobacco smoke exposure: No Alcohol intake: never Gender identity (if verbalized by the patient): Female Exam Const: General: alert Nutritional Appearance: thin Orientation/consciousness: patient oriented x3 HENMT: Head: normocephalic and atraumatic Face and sinus: normal facial exam, sinuses nontender and face symmetric Mouth: Yes Normal oral and palatal mucosa present, Yes lip normal, Yes oropharynx normal and Yes moist mucous membranes Throat: posterior oropharynx normal Eyes: Pupils: Equal, round and reactive pupils present EOM: EOMs intact bilaterally Resp: Effort & Inspection: normal respiratory effort and no retractions Auscultation: clear to auscultation bilaterally Cardio: Rate: regular rate Rhythm: regular rhythm Heart sounds: no murmurs GI: GI Palp: Yes Soft to palpation, Yes Tenderness to palpation present (GI), No Guarding due to palpation present (GI) and No Rigid due to palpation Auscultation: normal bowel sounds : General: Yes no CVA tenderness Skin: General skin exam: normal color Rashes: no rashes Neuro: General: patient oriented x3, moves all extremities and CN's II-XI intact bilaterally Extrem: General: normal to inspection Psych: Mental Status: mental status grossly normal Affect: normal affect Course Reevaluation(s) Reevaluation #1: I have reviewed with patient labs and imaging findings. She understands she has an ovarian cyst that she will need to follow up with her family psychologist about. She will finish her current antibiotics. She denies any other questions or concerns. Date: 09/14/20 Time: 10:36 Vital Signs Vital signs: Vital Signs Temperature 97.9 F 09/14/20 06:42 Pulse Rate 89 09/14/20 06:42 Respiratory Rate 16 09/14/20 06:42 Blood Pressure 128/88 09/14/20 06:42 Pulse Oximetry 96 09/14/20 06:42 Temperature 97.9 F 09/14/20 06:42 Pulse Rate 55 L 09/14/20 10:47 Respiratory Rate 16 09/14/20 10:47 Blood Pressure 119/77 09/14/20 10:47 Pulse Oximetry 100 09/14/20 10:47
[2020-09-14] MEDS: ONDANSETRON INJ 4 MG/2 ML VIAL IV PUSH (08:25)
--- NOTE | 2020-09-14 09:11 | PC.NURSE ---
Pt to ultrasound.
== END 2020-09-14 10:50 | disposition home or self-care (01) ==
PROVIDERS: Emergency Medicine; Emergency Provider General Practice; PCP Internal Medicine
DX: N83.202 Unspecified ovarian cyst, left side (principal); F41.9 Anxiety disorder, unspecified
CPT/HCPCS: 36415; 74018; 74176; 76830; 76856; 80053; 81001; 81025; 83690; 85025; 96365; 96375; 99284; J0131; J2405

== ENCOUNTER 2020-09-17 23:10 | Emergency (ER) | payer OTHER, SELFPAY ==
[2020-09-17 23:18] VITALS: BP 96/55; PULSE 103; RESP 18; TEMP 37.1; O2SAT 99
[2020-09-17 23:39] LABS: Basophils Absolute Auto 0.1 K/mm3 (0.0-0.1); Basophils Percent Auto 0.8 % (0.2-1.2); Eosinophils Absolute Auto 0.1 K/mm3 (0-0.3); Eosinophils Percent Auto 2.2 % (0-4.4); Hemoglobin 14.4 g/dL (12.0-15.0); Immature Granulocyte Absolute 0.04 K/mm3 (0.00-0.031); Immature Granulocyte Percent A 0.6 % (0-0.5); Lymphocytes Percent Auto 31.2 % (18.3-44.2); Mean Corpuscular Hemoglobin 30.3 pg (26-34); Mean Corpuscular Volume 94.7 fl (80-100); Mean Platelet Volume 9.7 fl (7.4-10.4); Monocytes Absolute Auto 0.5 K/mm3 (0.1-0.6); Monocytes Percent Auto 8.3 % (2.6-8.5); Neutrophils Absolute Auto 3.7 K/mm3 (1.3-6.7); Neutrophils Percent Auto 56.9 % (45.5-73.1); Platelet Count Result 194 k/mm3 (150-375); Red Blood Count 4.75 M/mm3 (4.2-5.4); White Blood Count 6.4 K/mm3 (4.5-10.0)
[2020-09-17 23:44] LABS: Alanine Aminotransferase 14 U/L (4-35); Albumin Level 4.2 g/dL (3.5-5.1); Alkaline Phosphatase 78 U/L (38-126); Anion Gap 8 mmol/L (8-16); Aspartate Amino Transferase 25 U/L (14-36); Bilirubin,Total 0.2 mg/dL (0.2-1.3); Blood Urea Nitrogen 10 mg/dL (7-17); Calcium 8.9 mg/dL (8.4-10.2); Carbon Dioxide 28 mmol/L (22-30); Chloride 100 mmol/L (98-107); Estimated CRCL calculation 120 ml/min; Estimated Glomerular Filt Rate > 60; Glucose 89 mg/dL (65-110); Lipase 135 U/L (23-300); Potassium 3.5 mmol/L (3.4-5.0); Sodium 136 mmol/L (137-145)
[2020-09-18 00:36] LABS: Add Urine Microscopic? YES; Appearance Urine Clear (Clear); Bacteria Urine Trace /hpf; Bilirubin Urine 1+ (Negative); Blood Urine Negative (Negative); Calcium Oxalate Crystals Urine Present /hpf; Color Urine Yellow (Yellow); Glucose Urine UA Negative (Negative); Ketones Urine Trace mg/dL (Negative); Leukocyte Esterase Ur Negative LEU/UL (Negative); Mucus Urine Heavy /lpf; Nitrate Urine Negative (Negative); Protein Urine 1+ mg/dL (Negative); RBC Urine 0-2 /hpf (0-2); Specific Grav Ur 1.029 (1.001-1.035); Squamous Epithelial Cell Urine Occasional /hpf (Few)
[2020-09-18 01:13] VITALS: BP 102/64; PULSE 64; RESP 18; TEMP 36.7; O2SAT 100
--- NOTE | 2020-09-18 01:45 | ED.ABDPAIN ---
HPI - Abdominal Pain History of Present Illness HPI narrative: Seen here a few days ago for pelvic pain. Found to have ovarian cyst at that time. Pain had been controlled since that time until last night when she had sudden severe pelvic pain. This pain has completely resolved at this time. Related Data Home Medications Medication Instructions Recorded Confirmed buspirone 5 mg PO BID 10/26/19 sertraline 50 mg PO DAILY 10/26/19 oxcarbazepine 300 mg PO BID 03/02/20 03/02/20 Allergies Allergy/AdvReac Type Severity Reaction Status Date / Time No Known Allergies Allergy Verified 09/18/20 01:16 Review of Systems Review of Systems: All systems reviewed & are unremarkable except as noted in HPI and below Constitutional: Constitutional: Denies fever(s) Cardiovascular: Cardiovascular: Denies chest pain Respiratory: Respiratory: Denies dyspnea Gastrointestinal: Gastrointestinal: Denies diarrhea and Denies vomiting Genitourinary: Genitourinary: Denies abnormal vaginal bleeding, Denies hematuria, Denies dysuria and Denies vaginal discharge [facility] Past Medical History Medical History Anorexia History of anxiety Surgical History Surgical History No history of previous surgery Family History Family History Sibling Family history of malignant neoplasm of cervix Other Diabetes mellitus Family history of arthritis Family history of cardiovascular disease Social History Social History Smoking status: Never smoker Second hand tobacco smoke exposure: No Alcohol intake: never Gender identity (if verbalized by the patient): Female Exam Const: General: healthy appearing, no acute distress and alert Orientation/consciousness: patient oriented x3 HENMT: Head: normal to inspection Neck: Neck: normal visual inspection Resp: Effort & Inspection: normal respiratory effort Auscultation: clear to auscultation bilaterally, no rales, no rhonchi and no wheezes Cardio: Jugular venous distension: no JVD Rate: regular rate Rhythm: regular rhythm Heart sounds: no murmurs GI: Inspection: non-distended GI Palp: Yes Soft to palpation and No Tenderness to palpation present (GI) Skin: General skin exam: normal color Neuro: General: patient oriented x3 and moves all extremities Speech: normal speech Extrem: General: no edema Psych: Appearance: well kempt Affect: Anxious affect present Course Vital Signs Vital signs: Vital Signs Temperature 37.1 C 09/17/20 23:18 Pulse Rate 103 H 09/17/20 23:18 Respiratory Rate 18 09/17/20 23:18 Blood Pressure 96/55 L 09/17/20 23:18 Pulse Oximetry 99 09/17/20 23:18 Temperature 36.7 C 09/18/20 01:13 Pulse Rate 64 09/18/20 01:13 Respiratory Rate 18 09/18/20 01:13 Blood Pressure 102/64 09/18/20 01:13 Pulse Oximetry 100 09/18/20 01:13 MDM - Abdominal Pain MDM Narrative Medical decision making narrative: Possible cyst rupture. Pain free at this time. Labs unremarkable. Vitals stable. Medical Records Attestation: I reviewed the patient's medical records. Lab Data Attestation: I reviewed the patient's lab results. Result diagrams: 09/17/20 23:27 09/17/20 23:27 Labs: Lab Results 09/17/20 09/17/20 09/18/20 Range/Units 23:27 23:27 00:19 WBC 6.4 (4.5-10.0) K/mm3 RBC 4.75 (4.2-5.4) M/mm3 Hgb 14.4 (12.0-15.0) g/dL Hct 45.0 (37.0-47.0) % MCV 94.7 (80-100) fl MCH 30.3 (26-34) pg MCHC 32.0 (32-36) g/dl RDW 13.0 (11.5-14.5) % Plt Count 194 (150-375) k/mm3 MPV 9.7 (7.4-10.4) fl Immature Gran % (Auto) 0.6 H (0-0.5) % Neut % (Auto) 56.9 (45.5-73.1) % Lymph % (Auto) 31.2 (18.3-44.2) % [place] % (Auto) 8.3 (2.6-8.5)
== END 2020-09-18 01:53 | disposition home or self-care (01) ==
PROVIDERS: Emergency Provider Emergency Medicine; PCP Internal Medicine
DX: R10.2 Pelvic and perineal pain (principal); F41.9 Anxiety disorder, unspecified
CPT/HCPCS: 36415; 80053; 81001; 81025; 83690; 85025; 99283

== ENCOUNTER 2020-10-02 16:31 | Emergency (ER) | payer OTHER, SELFPAY ==
[2020-10-02 16:38] VITALS: BP 120/90; PULSE 83; RESP 18; TEMP 36.9; O2SAT 98
[2020-10-02 17:37] LABS: Basophils Absolute Auto 0.1 K/mm3 (0.0-0.1); Basophils Percent Auto 0.8 % (0.2-1.2); Eosinophils Absolute Auto 0.1 K/mm3 (0-0.3); Eosinophils Percent Auto 1.4 % (0-4.4); Hematocrit 44.5 % (37.0-47.0); Hemoglobin 14.7 g/dL (12.0-15.0); Immature Granulocyte Absolute 0.02 K/mm3 (0.00-0.031); Immature Granulocyte Percent A 0.3 % (0-0.5); Lymphocytes Absolute Auto 1.12 K/mm3 (0.9-3.2); Lymphocytes Percent Auto 17.6 % (18.3-44.2); Mean Corpuscular Hemoglobin 30.2 pg (26-34); Mean Corpuscular Volume 91.6 fl (80-100); Mean Platelet Volume 8.9 fl (7.4-10.4); Monocytes Absolute Auto 0.4 K/mm3 (0.1-0.6); Monocytes Percent Auto 6.6 % (2.6-8.5); Neutrophils Absolute Auto 4.7 K/mm3 (1.3-6.7); Neutrophils Percent Auto 73.3 % (45.5-73.1); Platelet Count Result 327 k/mm3 (150-375); Red Blood Count 4.86 M/mm3 (4.2-5.4); Red Cell Distribution Width 13.3 % (11.5-14.5); White Blood Count 6.4 K/mm3 (4.5-10.0)
[2020-10-02 17:54] LABS: Alanine Aminotransferase 16 U/L (4-35); Albumin Level 4.6 g/dL (3.5-5.1); Alkaline Phosphatase 93 U/L (38-126); Anion Gap 15 mmol/L (8-16); Aspartate Amino Transferase 33 U/L (14-36); Bilirubin,Total 0.5 mg/dL (0.2-1.3); Blood Urea Nitrogen 7 mg/dL (7-17); Calcium 9.4 mg/dL (8.4-10.2); Carbon Dioxide 23 mmol/L (22-30); Chloride 99 mmol/L (98-107); Estimated CRCL calculation 102 ml/min; Estimated Glomerular Filt Rate > 60; Glucose 77 mg/dL (65-110); Lipase 40 U/L (23-300); Potassium 3.4 mmol/L (3.4-5.0); Sodium 137 mmol/L (137-145)
[2020-10-02 18:06] LABS: Add Urine Microscopic? YES; Appearance Urine Cloudy (Clear); Bacteria Urine Trace /hpf; Bilirubin Urine 1+ (Negative); Blood Urine 1+ (Negative); Glucose Urine UA Negative (Negative); Ketones Urine Negative (Negative); Leukocyte Esterase Ur Negative LEU/UL (Negative); Mucus Urine Heavy /lpf; Nitrate Urine Negative (Negative); Protein Urine 2+ mg/dL (Negative); Specific Grav Ur 1.024 (1.001-1.035); Squamous Epithelial Cell Urine Many /hpf (Few)
[2020-10-02 18:08] LABS: Color Urine Dark Yellow (Yellow)
--- NOTE | 2020-10-02 18:11 | ED.NAVMDI ---
HPI - Nausea/Vomiting/Diarrhea General Chief complaint: Nausea/Vomiting/Diarrhea Stated complaint: alcohol poisoning Time Seen by Provider: 10/02/20 17:57 History of Present Illness HPI Narrative: 19 yo female w/ h/o anxiety and depression presents to the ED c/o nausea and vomiting. She reports that her depression has worsened recently. this has lead to her drinking every day for the past week. She has not been able to keep any food down for three day. She is now concerned that she has alcohol poisoning. She has mild epigastric pain. She has already been in touch with her psychiatrist and is considering inpatient psychiatric treatment. No SI or HI. Related Data Home Medications Medication Instructions Recorded Confirmed buspirone 5 mg PO BID 10/26/19 sertraline 50 mg PO DAILY 10/26/19 oxcarbazepine 300 mg PO BID 03/02/20 03/02/20 lorazepam 10/02/20 Allergies Allergy/AdvReac Type Severity Reaction Status Date / Time No Known Allergies Allergy Verified 10/02/20 16:40 Review of Systems Review of Systems: All systems reviewed & are unremarkable except as noted in HPI and below Constitutional: Constitutional: Denies chills, Reports fatigue and Denies fever(s) ENT: Reports dizziness Cardiovascular: Cardiovascular: Denies chest pain Respiratory: Respiratory: Denies dyspnea Gastrointestinal: Gastrointestinal: Reports abdominal pain, Reports diarrhea, Reports nausea and Reports vomiting Genitourinary: Genitourinary: Reports no additional female genitourinary complaints Neurologic: Reports dizziness and Denies syncope PMFSH Past Medical History Medical History Anorexia History of anxiety Surgical History Surgical History No history of previous surgery Family History Family History Sibling Family history of malignant neoplasm of cervix Other Diabetes mellitus Family history of arthritis Family history of cardiovascular disease Social History Social History Smoking status: Never smoker Second hand tobacco smoke exposure: No Alcohol intake: never Gender identity (if verbalized by the patient): Female Exam Const: General: healthy appearing, no acute distress and alert Orientation/consciousness: patient oriented x3 HENMT: Head: normal to inspection Mouth: Yes dry mucous membranes Neck: Neck: normal visual inspection Resp: Effort & Inspection: normal respiratory effort Auscultation: clear to auscultation bilaterally, no rales, no rhonchi and no wheezes Cardio: Jugular venous distension: no JVD Rate: regular rate Rhythm: regular rhythm Heart sounds: no murmurs GI: Inspection: non-distended GI Palp: Yes Soft to palpation and No Tenderness to palpation present (GI) Skin: General skin exam: normal color Neuro: General: patient oriented x3 and moves all extremities Speech: normal speech Extrem: General: no edema Psych: Appearance: well kempt Affect: normal affect Course Vital Signs Vital signs: Vital Signs Temperature 36.9 C 10/02/20 16:38 Pulse Rate 83 10/02/20 16:38 Respiratory Rate 18 10/02/20 16:38 Blood Pressure 120/90 10/02/20 16:38 Pulse Oximetry 98 10/02/20 16:38 Temperature 36.9 C 10/02/20 16:38 Pulse Rate 83 10/02/20 16:38 Respiratory Rate 18 10/02/20 16:38 Blood Pressure 120/90 10/02/20 16:38 Pulse Oximetry 98 10/02/20 16:38 MDM - Nausea/Vomiting/Diarrhea MDM Narrative Medical decision making narrative: Feeling better after fluids and zofran Differential Diagnosis Differential diagnosis: Likely dehydration Medical Records Attestation: I reviewed the patient's medical records. Lab Data Attestation: I reviewed the patient's lab results. Result diagrams: 10/02/20 16:55
[2020-10-02] MEDS: METOCLOPRAMIDE HCL INJ 10 MG/2 ML VIAL IV PUSH (18:30)
[2020-10-02] MEDS: DEXTROSE 5%/0.45% SOD CHL 1,000 ML 1000 ML IV CONT (18:39)
--- NOTE | 2020-10-02 18:56 | PC.NURSE ---
called to pts room for c/o feeling anxious. states muscles are tightening up. states feels like she is about to od. talked to edp and dereck ordered. med given. pts father contacted per pts request. racheal [phone]
[2020-10-02] MEDS: diphenhydrAMINE HCl INJ 50 MG/ML VIAL IV PUSH (18:58)
== END 2020-10-02 20:00 | disposition home or self-care (01) ==
PROVIDERS: Emergency Provider Emergency Medicine; PCP Internal Medicine
DX: R11.2 Nausea with vomiting, unspecified (principal); R19.7 Diarrhea, unspecified; R10.13 Epigastric pain; F41.9 Anxiety disorder, unspecified; F32.9 Major depressive disorder, single episode, unspecified
CPT/HCPCS: 36415; 80053; 81001; 81025; 83690; 85025; 87077; 87086; 87088; 87186; 96361; 96374; 96375; 99284; J1200; J2765

== ENCOUNTER 2020-10-27 09:34 | Outpatient (CLI) | payer OTHER, SELFPAY ==
--- NOTE | ~2020-10-27 | CT_ITS ---
EXAMINATION: CT brain wo con EXAM DATE: 10/27/2020 10:04 INDICATION: Brain concussion, lightheadedness. Pressure back of head. TECHNIQUE: Spiral CT of the head was performed without contrast. Axial, coronal and sagittal images were reviewed. The dose-length product (DLP) for this examination was 605.33 mGy-cm. The exposure w as tailored according to patient size, and iterative reconstruction (ASIR) was used as additional dos e reduction technique. There is no prior study for comparison. FINDINGS: There is no acute intraparenchymal hemorrhage. No evidence of intraparenchymal brain mass lesion. No evidence of acute infarction. There is no mass effect or midline shift. The ventricles are normal in size. There are no extra-axial collections. There are no acute calvarial fractures. T he orbits are unremarkable. Soft tissue is unremarkable. The visualized sinuses and mastoid air jenifer ls are well aerated. IMPRESSION: 1. Unremarkable head CT examination. Reviewed, dictated and finalized at location B.
== END 2020-10-27 09:35 | disposition home or self-care (01) ==
LOC: ANHIMG 09:40
PROVIDERS: PCP Internal Medicine; Visit Provider Internal Medicine
DX: S06.0X0A Concussion without loss of consciousness, initial encounter (principal)
CPT/HCPCS: 70450

== ENCOUNTER 2020-11-20 10:13 | Emergency (ER) | payer OTHER, SELFPAY ==
[2020-11-20 10:19] VITALS: BP 123/79; PULSE 108; RESP 16; TEMP 37.3; O2SAT 99
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
--- NOTE | 2020-11-20 11:00 | PC.NURSE ---
[place] [employer] at bedside to discuss case w/ pt.
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
--- NOTE | 2020-11-20 11:30 | PC.NURSE ---
Officer Gerald Anglin and partner from [place] [employer] here to interview pt and discuss case. This RN was instructed to call when kit is ready for nut picker. CASE# [id number]. PH#[phone].
[2020-11-20 12:59] VITALS: BP 132/85; PULSE 81; RESP 15; O2SAT 97
--- NOTE | 2020-11-20 13:09 | PC.NURSE ---
Called [facility] at this time to notify of evidence collection kit ready for miner pick. States will send officer out. PH#[phone], case # [id number], KIT#[id number].
--- NOTE | 2020-11-20 14:15 | PC.NURSE ---
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 Charge had locked and kit was released at this time to Amrit Rain #[phone].
== END 2020-11-20 13:02 | disposition home or self-care (01) ==
PROVIDERS: Emergency Provider Emergency Medicine; PCP Internal Medicine
DX: Z04.41 Encounter for examination and observation following alleged adult rape (principal); F41.9 Anxiety disorder, unspecified
CPT/HCPCS: 99285

== ENCOUNTER 2021-02-06 07:34 | Emergency (ER) | payer OTHER, SELFPAY ==
[2021-02-06 07:42] VITALS: BP 114/85; PULSE 77; RESP 16; TEMP 36.9; O2SAT 97
--- NOTE | 2021-02-06 08:37 | PC.NURSE ---
RN called to room patients states she is having anxiety from being in the sick hallway and states she is going to leave and go to urgent care instead. Pt told that if she needs to come back and been seen she is welcome to at anytime.
== END 2021-02-07 00:14 | disposition left against medical advice (07) ==
PROVIDERS: Emergency Provider Emergency Medicine; PCP Internal Medicine
DX: Z53.21 Procedure and treatment not carried out due to patient leaving prior to being seen by health care provider (principal)
CPT/HCPCS: 87804; 99199

== ENCOUNTER 2021-08-26 12:53 | Emergency (ER) | payer OTHER, SELFPAY ==
[2021-08-26 13:05] VITALS: BP 128/85; PULSE 77; RESP 16; TEMP 37.2; O2SAT 100
--- NOTE | 2021-08-26 13:23 | ED.GENADULT ---
HPI - General Adult General Chief complaint: Urogenital-Female Stated complaint: sweating,nausea Time Seen by Provider: 08/26/21 13:18 Source: patient, RN notes reviewed and old records reviewed Mode of arrival: ambulatory Limitations: no limitations History of Present Illness HPI narrative: 20-year-old female who presents to [facility] care with complaints of sweating profusely yesterday some urinary frequency for the past 3 days, discomfort over bladder and mild nausea since yesterday. Patient reports that she has had UTI previously with similar symptoms. Patient denies any known fevers chills or sweats, denies any vomiting or diarrhea. Patient reports no know back pain or CVA tenderness. MD complaint: uti symptoms. Onset (ago): day(s) (3 days urinary frequency, sweating and nausea and discomfort over bladder since yesterday) Severity scale (1-10): 4 Treatments prior to arrival: other (Tylenol) Related Data Home Medications Medication Instructions Recorded Confirmed buspirone 5 mg tablet 15 mg PO BID 10/26/19 08/26/21 sertraline 100 mg tablet 100 mg PO DAILY 10/26/19 08/26/21 oxcarbazepine 300 mg tablet 150 mg PO BID 03/02/20 08/26/21 lorazepam 0.5 mg tablet 0.5 mg PO PRN PRN Anxiety 10/02/20 08/26/21 hyoscyamine sulfate 0.125 mg tablet 1 tablet PO PRN PRN Cramps 08/26/21 08/26/21 Allergies Allergy/AdvReac Type Severity Reaction Status Date / Time metoclopramide [From Reglan] Allergy Joint Pain Verified 08/26/21 13:04 Review of Systems Review of Systems: CONSTITUTIONAL: Denies fever, chills, or sweats. EYES: Denies visual changes, redness, or discharge. ENT: Denies rhinorrhea, congestion, sore throat, or otalgia. CARDIOVASCULAR: Denies chest pain, palpitations, or edema. RESPIRATORY: Denies cough or dyspnea. GASTROINTESTINAL: Positive for lower abdominal discomfort over bladder, nausea, no vomiting, or diarrhea. GENITOURINARY: Denies dysuria or hematuria positive fro urinary frequency SKIN: Denies rash or itching. MUSCULOSKELETAL: Denies back pain, joint pain, or myalgia. NEUROLOGIC: Denies headache, numbness, or weakness. PSYCHIATRIC: Positive anxiety or depression. All systems reviewed & are unremarkable except as noted in HPI and below PMFSH Past Medical History Medical History Anorexia History of anxiety Surgical History Surgical History No history of previous surgery Family History Family History Sibling Family history of malignant neoplasm of cervix Other Diabetes mellitus Family history of arthritis Family history of cardiovascular disease Social History Social History (Updated 08/26/21 @ 13:51 by France Au NP) Smoking status: Never smoker Second hand tobacco smoke exposure: No Alcohol intake: current Alcohol use details: social Living arrangements: with family Gender identity (if verbalized by the patient): Female Sexual Orientation (if Verbalized by the Patient): Straight or Heterosexual Comments At time of signature, agree with nursing past medical, surgical, social and family history. There is no relevant family history pertinent to the presenting complaint Exam Narrative: GENERAL: Well-appearing, well-nourished, and in no acute distress.reports episode of sweating profusely HEAD: Normocephalic, atraumatic. EYES: PERRLA and EOMI. ENT: Nares clear, no rhinorrhea or epistaxis. Mucous membranes moist.TM's normal with good light reflex, throat pink with no lesions or exudates no tonsil swelling NECK: Supple.no lymphadenopathy CHEST: Clear to auscultation. No respiratory distress.SAO2 100% HEART: Regular rate and rhythm. No murmur heard. Normal peripheral pulses. ABDOMEN: Soft, suprapubic tenderness, nondistended, normal active bowel sounds. EXTREMITIES: Normal range of motion. No edema. SKIN: Warm, dry, n
== END 2021-08-26 13:47 | disposition home or self-care (01) ==
PROVIDERS: Emergency Provider Registered Nurse; PCP Internal Medicine
DX: N39.0 Urinary tract infection, site not specified (principal); F41.9 Anxiety disorder, unspecified
CPT/HCPCS: 81003; 87086; 87088; 99213; G0463